=== PATIENT | male | born 2000 | race Caucasian/White ===

== ENCOUNTER 2022-08-05 20:07 | Emergency (ER) | payer OTHER, MEDICAID, SELFPAY ==
[2022-08-05 20:16] VITALS: BP 126/88; PULSE 79; O2SAT 98
[2022-08-05 20:19] VITALS: BP 123/56; PULSE 62; RESP 16; TEMP 36.4; O2SAT 98; BMI 23.5
--- NOTE | 2022-08-05 21:47 | ED.PSYCH ---
HPI - Psych General Chief Complaint: Psychiatric Symptoms Stated Complaint: crisis SI Time Seen by Provider: 08/05/22 20:48 Source: patient and EMS Mode of arrival: EMS Limitations: no limitations History of Present Illness HPI Narrative: Patient comes to the emergency room via EMS from his aunt's house. Since the patient was trespassing at his aunt's house, PD was called. Patient made some SI comments. Here in the emergency room, patient states that his complaint is that he is homeless and he feels like hurting himself. Patient has no other complaints. Related Data Allergies Allergy/AdvReac Type Severity Reaction Status Date / Time No Known Allergies Allergy Verified 08/05/22 20:23 [No Known Allergies*] Review of Systems Review of Systems: Constitutional : No Weight loss, No Fever, No Chills, No Night Sweats, No Fatigue, No Malaise ENT/Mouth : No Hearing loss, No Ear Pain, No Nasal Congestion, No Sinus Pain, No Hoarseness, No sore throat, No Rhinorrhea, No Swallowing Difficulty Eyes: No Eye Pain, No Swelling, No Redness, No Foreign Body, No Discharge, No Vision Changes Cardiovascular : No Chest Pain, No SOB, No Dyspnea on Exertion, No Orthopnea, No Edema, No Palpitations Respiratory : No Cough, No Sputum, No Wheezing, No Smoke Exposure, No Dyspnea Gastrointestinal : No Nausea, No Vomiting, No Diarrhea, No Constipation, No abdominal Pain, No Hematochezia, No Melena Genitourinary : no irregular bleeding, No Dysuria, No Urinary Frequency, No Hematuria, No Urinary Incontinence, No Urgency, No Flank Pain, No Urinary Flow Changes, No Hesitancy Musculoskeletal : No joint pain, No Myalgias, No Joint Swelling Skin : No Skin Lesions, No rash Neuro : No Weakness, No Numbness, No Paresthesias, No Loss of Consciousness, No Dizziness, No Headache Psych : No Anxiety/Panic, No Depression, vague SI, no HI Heme/Lymph: No Bruising, No Bleeding,No Lymphadenopathy Endocrine : No Polyuria, No Polydipsia, No Temperature Intolerance PMFSH Past Medical History Medical History No known health problems Social History Social History Alcohol intake: never Smoked in Last 30 Days: No Use of substances other than those prescribed or required for medical reasons: No Advance Directives: No Advance Directives Information Provided: Yes Physical Exam Vital Signs: Vital Signs: Last Vital Signs Temp 97.6 F 08/05/22 20:19 Pulse 62 08/05/22 20:19 Resp 16 08/05/22 20:19 BP 123/56 L 08/05/22 20:19 Pulse Ox 98 08/05/22 20:19 O2 Del Method 08/05/22 20:19 BMI result Body Mass Index 23.5 Const: Other: Appearance: Alert. Oriented X3. No acute distress. Juggling cans of soda Eyes: Pupils equal, round and reactive to light. ENT: Pharynx normal. Neck: Normal inspection. Neck supple. No lymph nodes noted. No crepitus CVS: Normal heart rate and rhythm. Pulses normal. Normal S1 and S2 Respiratory: No respiratory distress. Breath sounds normal. No Wheezing. No rales Abdomen: Soft and nontender. No rigidity. No distention. Skin: Skin warm and dry. Normal skin color. Normal skin turgor. Extremities: No lower extremity edema. No Lacerations. No Rash Neuro: Oriented X 3. No motor deficit. No sensory deficit. Moving all extremities. No slurred speech. CN 2 through 12 grossly intact Psych: calm, cooperative, normal affect Course Course Course Narrative: -patient has vague SI, stating that he is homeless -patient seems to be in good spirits, talking to his neighbors in the hallway, juggling cans of soda -most likely, patient looking for a place to stay overnight. -urine toxicology and COVID test pending -care team consult requested, pending -physician observation started at 21:50 Discharge Plan Discharge Clinical Impression: Suicidal ideation Patient Disposition: Still a Patient Interventions: [place]-Suicide Risk Severity Scale Last Done: 08/05/22 20:23
[2022-08-05 22:32] LABS: Amphetamine Screen Urine Not Detected (Not Detect); Barbiturates, Urine Not Detected (Not Detect); Benzodiazepines Screen Urine Not Detected (Not Detect); Cannabinoid Screen Urine POSITIVE (Not Detect); Cocaine Screen Urine Not Detected (Not Detect); Fentanyl, urine Not Detected (Not Detect); Opiate Screen Urine Not Detected (Not Detect); Phencyclidine Screen Urine Not Detected (Not Detect)
[2022-08-05 22:34] LABS: COVID-19 Test Negative (Negative); IDNOW Serial# 6674DD1D
[2022-08-06 00:07] VITALS: BP 127/86; PULSE 72; RESP 16; TEMP 36.6; O2SAT 98
[2022-08-06 06:17] VITALS: BP 132/69; PULSE 60; RESP 17; TEMP 36.7; O2SAT 98
--- NOTE | 2022-08-06 06:37 | PC.NURSE ---
Pt asleep at the bedside in no apparent distress. Breaths are even, regular, and unlabored with equal chest rises. Will continue to monitor.
[2022-08-06 07:32] VITALS: BP 133/67; PULSE 46; RESP 16; TEMP 36.5; O2SAT 99
--- NOTE | 2022-08-06 09:50 | PC.NURSE ---
report from Radha LOO. placed in bed 5. ambulates with strong steady gait. pending eval from care team..
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
[2022-08-06 15:44] VITALS: BP 121/71; PULSE 61; RESP 18; TEMP 36.9; O2SAT 97
== END 2022-08-06 16:56 | disposition home or self-care (01) ==
PROVIDERS: Emergency Provider Emergency Medicine
DX: R45.851 Suicidal ideations (principal); F23 Brief psychotic disorder; Z72.811 Adult antisocial behavior; F12.90 Cannabis use, unspecified, uncomplicated; Z20.822 Contact with and (suspected) exposure to COVID-19
CPT/HCPCS: 80307; 87635; 99284; 99285; S9485